=== PATIENT | female | born 1950 | race Caucasian/White ===

== ENCOUNTER 2020-01-20 08:25 | Emergency (ER) | payer MEDICARE ==
--- NOTE | 2020-01-20 08:49 | EDM.PDOC ---
ED HPI GENERAL MEDICAL PROBLEM - General Chief Complaint: Allergic Reaction Stated Complaint: SWOLLEN FACE,LIPS,MOUTH Time Seen by Provider: 01/20/20 08:38 Source of Information: Reports: Patient History Limitations: Reports: No Limitations - History of Present Illness INITIAL COMMENTS - FREE TEXT/NARRATIVE: Patient presents for evaluation of facial and lip swelling which she noticed on awakening this morning. She woke up approximately 0400 hrs. and could feel that her face and lip were puffy. This happened about 3 months ago and there have been additional episodes earlier than that although generally they were localized to just 1 side of the face. She has no history of allergies to anything. She is not on lisinopril or any other ROXY inhibitor's. She took 25 mg of Benadryl orally when she first awakened. She went back to sleep, waking up again around 0700 hours and the swelling was more pronounced and quite firm in the tissues of her mouth and face. Her tongue was not swollen. She had no difficulty swallowing. Her breathing is not limited in anyway. No rash or other skin changes. Onset: Today Duration: Hour(s): (4) Location: Reports: Head, Face Quality: Reports: Dull Severity: Moderate Improves with: Reports: Medication Worsens with: Reports: None Associated Symptoms: Reports: No Other Symptoms Treatments DATA LIBRARIAN: Reports: Other Medication(s) (Benadryl, total of 75 mg since 0400 hrs. 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 Bilateral edema in the lower half of the face.). Denies: Throat Swelling Respiratory: Reports: No Symptoms Cardiovascular: Reports: Palpitations Skin: Reports: No Symptoms ED EXAM GENERAL NO PERIP PULSE - Physical Exam Exam: See Below Text/Narrative:: This is an adult female with obvious significant swelling of the lips and face even from a distance. Her voice is normal per her report. Exam Limited By: No Limitations General Appearance: Alert, Mild Distress Eye Exam: Bilateral Eye: Normal Inspection Throat/Mouth: No Airway Compromise, Other (Both upper and lower lips are edematous, lower lip worse. There is some induration present in the tissue of the lips and the adjacent skin of the face on both sides. The tongue is of normal appearance as are the tonsils.). No: Dysphagia Head: Facial Swelling Neck: Non-Tender Respiratory/Chest: No Respiratory Distress, Lungs Clear Cardiovascular: Regular Rate, Rhythm, Tachycardia Course - Vital Signs Last Recorded V/S: Last Vital Signs Temp 35.1 C L 01/20/20 09:57 Pulse 85 01/20/20 09:57 Resp 18 01/20/20 11:21 BP 144/69 H 01/20/20 11:21 Pulse Ox 99 01/20/20 11:21 - Orders/Labs/Meds Orders: Active Orders 24 hr Category Date Time Status Sodium Chloride 0.9% [Saline Flush] Med 01/20/20 08:56 Ordered 10 ml FLUSH ASDIRECTED PRN Saline Lock Insert [OM.PC] Routine Oth 01/20/20 08:56 Ordered Medication Orders Sodium Chloride (Saline Flush) 10 ml FLUSH ASDIRECTED PRN PRN Reason: Keep Vein Open Last Admin: 01/20/20 09:29 Dose: 10 ml Documented by: Meds: Medications Generic Name Dose Route Start Last Admin Trade Name Freq PRN Reason Stop Dose Admin Sodium Chloride 10 ml 01/20/20 08:56 01/20/20 09:29 Saline Flush FLUSH 10 ml ASDIRECTED PRN Administration Keep Vein Open Discontinued Medications Generic Name Dose Route Start Last Admin Trade Name Freq PRN Reason Stop Dose Admin Diphenhydramine HCl 25 mg 01/20/20 08:56 01/20/20 09:15 Benadryl IVPUSH 01/20/20 08:57 25 mg ONETIME ONE Administration Epinephrine HCl 0.3 mg 01/20/20 08:57 01/20/20 09:13 Adrenalin IM 01/20/20 08:58 0.3 mg ONETIME ONE Administration Famotidine 20 mg 01/20/20 08:57 01/20/20 09:22 Pepcid IVPUSH 01/20/20 08:58 20 mg ONETIME ONE Administration Methylprednisolone Sodium Succinate 125 mg 01/20/20 08:57 01/20/20 09:19 Solu-Medrol IVPUSH 01/20/20 08:58 125 mg ONETIME ONE Administration - Re-Assessments/Exams Free Text/Narrative Re-Assessment/Exam: 01/20/20 09:08 There is no obvious cause for her angioedema that has ever been identified by the patient or others. She'll be given epinephrine 0.3 mg IM, Benadryl 25 mg IV, Pepcid 20 mg IV, Solu-Medrol 125 mg IV. I discussed that we need to observe her for at least 2 hours to make certain things are improving. Other than the facial swelling, she is in no respiratory distress at this time. 01/20/20 09:10 01/20/20 09:58 0957 hours, after receiving medication, the tightness feeling and swelling in the lips and adjacent face has been reduced although not eliminated. Still no breathing problems or swallowing problems. 01/20/20 11:47 1137 hours, patient feels substantially better at this time and swelling in his lips and face is been reduced by roughly 75%. She is able to breathe fine and has no trouble swallowing. I don't have an obvious cause for her symptoms. It could be something that is in the environment that she is allergic to although more typically this would be from something internal. She was sent with prescriptions for an EpiPen 0.3 mg twin pack, prednisone 20 mg, 10 tablets, both to be used as directed. If she uses the EpiPen, she must come to the emergency department. With another episode, with or without using the EpiPen, she should take 50 mg of Benadryl and 20 mg of Pepcid right away. She may require clinic testing to further look at his causes for this. We discussed that there is not a simple way to determine why this has started now but that treatment is relatively straightforward. Reasons to return to emergency department reviewed. Departure - Departure Time of Disposition: 11:39 Disposition: Home, Self-Care 01 Clinical Impression: Angioedema Qualifiers: Encounter type: initial encounter Qualified Code(s): T78.3XXA - Angioneurotic edema, initial encounter - Discharge Information Instructions: Angioedema, [id number] Referrals: PCP,None [Primary Care Provider] - Forms: ED Department Discharge Additional Instructions: Start prednisone today. Take Benadryl 25 mg 3 times a day regularly for the next 3 days. 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 Continue your loratadine every day for one month. If symptoms return as they did today, you could use the EpiPen as a temporary measure until you're able to get to the emergency department. It is for severe reactions. If you use the EpiPen must come to the emergency department. Also if you use the EpiPen take Benadryl and Pepcid before coming in to get its benefit also. Return to ER if feeling worse in anyway. Depending on how often this is occurring, additional clinic evaluation may be needed. Sepsis Event Note (ED) - Evaluation Sepsis Screening Result: No Definite Risk - Focused Exam Vital Signs: Vital Signs Temp Pulse Resp BP Pulse Ox 01/20/20 11:21 18 144/69 H 99 01/20/20 09:57 35.1 C L 85 20 143/65 H 99 01/20/20 08:30 36.5 C 106 H 18 156/71 H 99 - My Orders Last 24 Hours: My Active Orders 01/20/20 08:56 Sodium Chloride 0.9% [Saline Flush] 10 ml FLUSH ASDIRECTED PRN Saline Lock Insert [OM.PC] Routine - Assessment/Plan Last 24 Hours: My Active Orders 01/20/20 08:56 Sodium Chloride 0.9% [Saline Flush] 10 ml FLUSH ASDIRECTED PRN Saline Lock Insert [OM.PC] Routine
[2020-01-20] MEDS ORDERED: diphenhydrAMINE 50 MG/ML SDV IVPUSH ONE (08:56)
[2020-01-20] MEDS ORDERED: EPINEPHrine 1 MG/ML SDV IM ONE (08:57)
[2020-01-20] MEDS ORDERED: methylPREDNISolone Sodium Succinate 125 MG/2 ML SDV IVPUSH ONE (08:57)
[2020-01-20] MEDS ORDERED: Famotidine 20 MG/2 ML SDV IVPUSH ONE (08:57)
[2020-01-20] MEDS: Sodium Chloride 0.9% 10 ML Syringe FLUSH PRN ×3 (09:27→09:29)
[2020-01-20 09:59] VITALS: PULSE 85
[2020-01-20 11:23] VITALS: BP 144/69
== END 2020-01-20 12:00 | disposition home or self-care (01) ==
LOC: JP.ED 08:25
DX: T78.3XXA Angioneurotic edema, initial encounter (principal); R00.0 Tachycardia, unspecified; Z79.82 Long term (current) use of aspirin
CPT/HCPCS: 96372; 96374; 96375; 99283; J0171; J1200; J2930; J3490

== ENCOUNTER 2020-01-21 09:13 | Emergency (ER) | payer MEDICARE ==
[2020-01-21 09:36] VITALS: BP 162/84; PULSE 127
--- NOTE | 2020-01-21 09:57 | EDM.PDOC ---
ED HPI GENERAL MEDICAL PROBLEM - General Chief Complaint: Allergic Reaction Stated Complaint: HIVES,THROAT TIGHT,ALLERGIC REACTION Time Seen by Provider: 01/21/20 09:58 Source of Information: Reports: Patient History Limitations: Reports: No Limitations - History of Present Illness INITIAL COMMENTS - FREE TEXT/NARRATIVE: pt was seen yesterday with angioedema of the face. She was placed on pepcid, predisone and given epipen. This am she broke in a fine rash on the neck and she was scratchy in the throat. Her facial swelling is much better. Onset: Gradual Duration: Hour(s): Location: Reports: Face, Neck, Other (pt felt scratch in the throat but she did not have trouble breathing. Pt had a concern that the rash was a reaction to the predisone. ) - Related Data Allergies Allergy/AdvReac Type Severity Reaction Status Date / Time No Known Allergies Allergy Verified 01/20/20 08:36 Home Meds: Home Meds Amitriptyline [Elavil] 10 mg PO BEDTIME 10/08/15 [History] Aspirin [Adult Low Dose Aspirin EC] 81 mg PO DAILY 10/10/15 [History] EPINEPHrine [Epipen] 0.3 mg IM ASDIRECTED PRN 01/21/20 [History] Famotidine [Pepcid] 20 mg PO ASDIRECTED 01/21/20 [History] diphenhydrAMINE [Benadryl] 50 mg PO ASDIRECTED 01/21/20 [History] predniSONE 20 mg PO DAILY 01/21/20 [History] Past Medical History HEENT History: Reports: Allergic Rhinitis, Impaired Vision Cardiovascular History: Reports: None Respiratory History: Reports: None Gastrointestinal History: Reports: None Genitourinary History: Reports: None 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: Musculoskeletal History: Reports: None Neurological History: Reports: CVA, Other (See Below) Other Neuro History: Confusional migraine Psychiatric History: Reports: None Endocrine/Metabolic History: Reports: None Hematologic History: Reports: None Immunologic History: Reports: None Oncologic (Cancer) History: Reports: None Dermatologic History: Reports: None - Infectious Disease History Infectious Disease History: Reports: Chicken Pox, Measles, Mumps - Past Surgical History Female Surgical History: Reports: Hysterectomy, Salpingo-Oophorectomy, Other (See Below) Social & Family History - Tobacco Use Smoking Status *Q: Never Smoker - Caffeine Use Caffeine Use: Reports: Coffee - Recreational Drug Use Recreational Drug Use: No ED ROS ALLERGIC REACTION - Review of Systems Review Of Systems: See Below Constitutional: Reports: No Symptoms HEENT: Reports: Other ( pt has a scratch throat and a rash on her chest and neck. ) Respiratory: Reports: No Symptoms Cardiovascular: Reports: No Symptoms Endocrine: Reports: No Symptoms GI/Abdominal: Reports: No Symptoms : Reports: No Symptoms Musculoskeletal: Reports: No Symptoms Skin: Reports: Other ( red rash onthe neck and chest. ) Neurological: Reports: No Symptoms Psychiatric: Reports: Anxiety, Other (pt feels like the predisone is making her feel hyper) ED EXAM GENERAL NO PERIP PULSE - Physical Exam Exam: See Below Text/Narrative:: pt arrived with a scratchy feeling in her throat and a rash on her anterior neck and chest area. Exam Limited By: No Limitations General Appearance: Alert, Anxious Ears: Normal TMs Nose: Normal Inspection Throat/Mouth: Other (pt has no swelling in her throat area. ) Head: Atraumatic Neck: Normal Inspection Respiratory/Chest: No Respiratory Distress Cardiovascular: Regular Rate, Rhythm GI/Abdominal: Soft, Non-Tender (Female) Exam: Deferred Rectal (Female) Exam: Deferred Back Exam: Normal Inspection Extremities: Normal Inspection Neurological: Alert, Oriented Psychiatric: Anxious, Other (predisone is making her feel hyper) Skin Exam: Erythema, Rash Course - Vital Signs Last Recorded V/S: Last Vital Signs Temp 35.8 C L 01/21/20 09:44 Pulse 127 H 01/21/20 09:44 Resp 14 01/21/20 09:44 BP 162/84 H 01/21/20 09:44 Pulse Ox 98 01/21/20 09:44 Departure - Departure Time of Disposition: 09:55 Disposition: Home, Self-Care 01 Condition: Fair Clinical Impression: Angio-edema - Discharge Information Referrals: Choco Laboy NP [Primary Care Provider] - Forms: ED Department Discharge Care Plan Goals: continue to use claritin or benadryl, continue all meds the same , fill the epipen and reserve only for a marked emergency. Sepsis Event Note (ED) - Evaluation Sepsis Screening Result: No Definite Risk - Focused Exam Vital Signs: Vital Signs Temp Pulse Resp BP Pulse Ox 01/21/20 09:44 35.8 C L 127 H 14 162/84 H 98 01/21/20 09:34 35.8 C L 127 H 14 162/84 H 98
== END 2020-01-21 09:59 | disposition home or self-care (01) ==
LOC: JP.ED 09:13
DX: T78.3XXA Angioneurotic edema, initial encounter (principal); Z79.82 Long term (current) use of aspirin; Z79.899 Other long term (current) drug therapy; Z86.73 Personal history of transient ischemic attack (TIA), and cerebral infarction without residual deficits
CPT/HCPCS: 99283

== ENCOUNTER 2020-11-26 02:19 | Emergency (ER) | payer MEDICARE ==
[2020-11-26] MEDS ORDERED: methylPREDNISolone Sodium Succinate 125 MG/2 ML SDV IVPUSH ONE (02:48)
--- NOTE | 2020-11-26 02:55 | EDM.PDOC ---
ED HPI GENERAL MEDICAL PROBLEM - General Chief Complaint: General Stated Complaint: SWOLLEN TONGUE Time Seen by Provider: 11/26/20 02:40 Source of Information: Reports: Patient History Limitations: Reports: No Limitations - History of Present Illness INITIAL COMMENTS - FREE TEXT/NARRATIVE: 70-year-old female with chronic recurring angioedema episodes especially of facial tissue and tongue, presents after giving herself an EpiPen because of tongue edema that started at 10:30 PM. She is now improving significantly, is able to talk and has no airway compromise. She has a consult at [facility] in 3 weeks to discuss this chronic recurring medical issue. No shortness of breath, no fevers or chills. Onset: Sudden (Swelling started fairly suddenly about 4 hours ago) Location: Reports: Other (Mostly in the left tongue and left face) Associated Symptoms: Denies: Headaches, Malaise, Nausea/Vomiting, Shortness of Breath denies Pain Score (Numeric/FACES): 0 - Related Data Allergies Allergy/AdvReac Type Severity Reaction Status Date / Time No Known Allergies Allergy Verified 11/26/20 02:37 Home Meds: Home Meds Amitriptyline [Elavil] 10 mg PO BEDTIME 10/08/15 [History] EPINEPHrine [Epipen] 0.3 mg IM ASDIRECTED PRN 01/21/20 [History] diphenhydrAMINE [Benadryl] 50 mg PO ASDIRECTED 01/21/20 [History] Cetirizine [ZyrTEC] 30 mg PO BEDTIME 11/26/20 [History] Desloratadine 10 mg PO DAILY 11/26/20 [History] Past Medical History HEENT History: Reports: Allergic Rhinitis, Impaired Vision Cardiovascular History: Reports: None Respiratory History: Reports: None Gastrointestinal History: Reports: None Genitourinary History: Reports: None 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: Musculoskeletal History: Reports: None Neurological History: Reports: CVA, Other (See Below) Other Neuro History: Confusional migraine Psychiatric History: Reports: None Endocrine/Metabolic History: Reports: None Hematologic History: Reports: None Immunologic History: Reports: None Oncologic (Cancer) History: Reports: None Dermatologic History: Reports: None - Infectious Disease History Infectious Disease History: Reports: Chicken Pox, Measles, Mumps - Past Surgical History Female Surgical History: Reports: Hysterectomy, Salpingo-Oophorectomy, Other (See Below) Other Female Surgeries/Procedures: Bladder repair Social & Family History - Caffeine Use Caffeine Use: Reports: Coffee ED ROS GENERAL - Review of Systems Review Of Systems: See Below Constitutional: Denies: Fever, Chills HEENT: Reports: Other (Tongue and left facial edema) Respiratory: Denies: Shortness of Breath, Cough Cardiovascular: Denies: Chest Pain Neurological: Reports: No Symptoms, Change in Speech (Difficulty speaking due to swollen tongue). Denies: Headache ED EXAM, GENERAL - Physical Exam Exam: See Below Exam Limited By: No Limitations General Appearance: Alert, No Apparent Distress Eye Exam: Bilateral Eye: Normal Inspection Throat/Mouth: Other (Tylenol looks fairly symmetric, just a small amount of mucosal edema is left under the tongue on the left side) Head: Atraumatic Respiratory/Chest: No Respiratory Distress, Lungs Clear Neurological: Alert, Oriented Psychiatric: Normal Affect, Normal Mood Skin Exam: Warm, Dry Course - Vital Signs Last Recorded V/S: Last Vital Signs Temp 97.2 F 11/26/20 02:46 Pulse 103 H 11/26/20 02:46 Resp 16 11/26/20 02:46 BP 179/82 H 11/26/20 02:46 Pulse Ox 99 11/26/20 02:46 - Orders/Labs/Meds Meds: Medications Discontinued Medications Generic Name Dose Route Start Last Admin Trade Name Rena PRN Reason Stop Dose Admin Methylprednisolone Sodium Succinate 125 mg 11/26/20 02:48 11/26/20 03:01 Methylprednisolone Sodium Succinate 125 Mg/2 Ml Sdv IVPUSH 11/26/20 02:49 125 mg ONETIME ONE Administration - Re-Assessments/Exams Free Text/Narrative Re-Assessment/Exam: 11/26/20 02:47 An IV was started and the patient was given 125 mg of IV Solu-Medrol, but no further treatment was needed at this time. Continue her regular medications and recheck with [facility] as scheduled, return anytime if symptoms recur. Departure - Departure Time of Disposition: 03:21 Disposition: Home, Self-Care 01 Clinical Impression: Angioedema Qualifiers: Encounter type: initial encounter Qualified Code(s): T78.3XXA - Angioneurotic edema, initial encounter - Discharge Information Instructions: Angioedema, [id number] Referrals: Roiko,Choco, [employer] SPECIAL EDUCATION TEACHER [Primary Care Provider] - Forms: ED Department Discharge Care Plan Goals: Continue your regular medications, cool compresses or ice to any swollen areas may be beneficial and return if symptoms are persistent. Sepsis Event Note (ED) - Focused Exam Vital Signs: Vital Signs Temp Pulse Resp BP Pulse Ox 11/26/20 02:46 97.2 F 103 H 16 179/82 H 99
[2020-11-26 05:29] VITALS: BP 179/82; PULSE 103
== END 2020-11-26 03:20 | disposition home or self-care (01) ==
LOC: JP.ED 02:19
DX: T78.3XXA Angioneurotic edema, initial encounter (principal); Z86.73 Personal history of transient ischemic attack (TIA), and cerebral infarction without residual deficits; Z79.899 Other long term (current) drug therapy
CPT/HCPCS: 96374; 99283; J2930

== ENCOUNTER 2021-03-28 02:03 | Emergency (ER) | payer MEDICARE ==
[2021-03-28] MEDS ORDERED: Sodium Chloride 0.9% 10 ML Syringe FLUSH PRN (02:24)
[2021-03-28] MEDS ORDERED: diphenhydrAMINE 50 MG/ML SDV IVPUSH ONE (02:24)
[2021-03-28] MEDS ORDERED: Famotidine 20 MG/2 ML SDV IVPUSH ONE (02:24)
--- NOTE | 2021-03-28 02:37 | EDM.PDOC ---
ED HPI GENERAL MEDICAL PROBLEM - General Chief Complaint: ENT Problem Stated Complaint: ANGIO EDEMA, TONGUE SWELLING Time Seen by Provider: 03/28/21 02:16 Source of Information: Reports: Patient History Limitations: Reports: No Limitations - History of Present Illness INITIAL COMMENTS - FREE TEXT/NARRATIVE: Patient presents emergency room today with sudden onset of idiopathic angioedema episode. She states that episodes always occur in the middle of the night and wake her from sleep. She woke up around 00 30 secondary to right-sided tongue swelling and fullness. 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: epi - Related Data Allergies Allergy/AdvReac Type Severity Reaction Status Date / Time No Known Allergies Allergy Verified 03/28/21 02:11 Home Meds: Home Meds Amitriptyline [Elavil] 10 mg PO BEDTIME 10/08/15 [History] EPINEPHrine [Epipen] 0.3 mg IM ASDIRECTED PRN 01/21/20 [History] diphenhydrAMINE [Benadryl] 50 mg PO ASDIRECTED 01/21/20 [History] Cetirizine [ZyrTEC] 30 mg PO BEDTIME 11/26/20 [History] Desloratadine 10 mg PO DAILY 11/26/20 [History] Past Medical History HEENT History: Reports: Allergic Rhinitis, Impaired Vision Cardiovascular History: Reports: None Respiratory History: Reports: None Gastrointestinal History: Reports: None Genitourinary History: Reports: None 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: Musculoskeletal History: Reports: None Neurological History: Reports: CVA, Other (See Below) Other Neuro History: Confusional migraine Psychiatric History: Reports: None Endocrine/Metabolic History: Reports: None Hematologic History: Reports: None Immunologic History: Reports: None Oncologic (Cancer) History: Reports: None Dermatologic History: Reports: Angiodema - Infectious Disease History Infectious Disease History: Reports: Chicken Pox, Measles, Mumps - Past Surgical History Female Surgical History: Reports: Hysterectomy, Salpingo-Oophorectomy, Other (See Below) Other Female Surgeries/Procedures: Bladder repair Social & Family History - Tobacco Use Tobacco Use Status *Q: Never Tobacco User - Caffeine Use Caffeine Use: Reports: Coffee - Recreational Drug Use Recreational Drug Use: No ED ROS GENERAL - Review of Systems Review Of Systems: Comprehensive ROS is negative, except as noted in HPI. HEENT: Reports: Other (Tongue swelling right-sided primarily). Denies: Throat Swelling Respiratory: Denies: Shortness of Breath, Wheezing, Cough ED EXAM, GENERAL - Physical Exam Exam: See Below Exam Limited By: No Limitations General Appearance: Alert, WD/WN, No Apparent Distress Eye Exam: Bilateral Eye: EOMI, Normal Inspection, PERRL Ears: Normal External Exam, Hearing Grossly Normal Nose: Normal Inspection Throat/Mouth: Normal Lips, No Airway Compromise, Other (Is noted right side tongue fullness and swelling and it is causing some voice changes secondary to a thick tongue with talking) Head: Atraumatic, Normocephalic Neck: Normal Inspection, Supple, Non-Tender, Full Range of Motion Respiratory/Chest: No Respiratory Distress, Lungs Clear, Normal Breath Sounds, No Accessory Muscle Use. No: Wheezing, Stridor Cardiovascular: Normal Peripheral Pulses, Regular Rate, Rhythm, No Edema, No Murmur Peripheral Pulses: 2+: Radial (L), Radial (R) GI/Abdominal: Normal Bowel Sounds, Soft, Non-Tender, No Distention (Female) Exam: Deferred Rectal (Female) Exam: Deferred Back Exam: Normal Inspection, Full Range of Motion Extremities: Normal Inspection, Normal Range of Motion, No Pedal Edema, Normal Capillary Refill Neurological: Alert, Oriented, Normal Cognition, No Motor/Sensory Deficits Psychiatric: Normal Affect, Normal Mood Skin Exam: Warm, Dry, Intact, Normal Color Course - Vital Signs Text/Narrative:: 0236--discussion of previous episodes patient states that depending on her response as to whether she gets steroids in the emergency room. Secondary to tongue swelling she comes to the ER and does use her EpiPen in case there is worsening of condition. She states when she has facial episodes that she just use cool cloths at home. Patient does state that she has been to [facility] [place] and they are unable to figure out because of the angioedema this time she just manages it symptomatically when it occurs and on the type of episode. At this time we will give her Pepcid and Benadryl and additional 25 mg of Benadryl for a total of 50 these will be provided IV as well as a saline lock should she have any worsening symptoms we have access available. If no further changes or concerns noted after 1 hour observation will discharge home with PCM follow-up as needed there is any worsening symptoms then will provide Solu-Medrol 0303--patient recheck, she states that tongue swelling has gone down but still some on very back. she would like to wait a bit longer before going home as she is concerned about having to come back. will recheck at 0330 for d/c 0323--patient has called nurse and states that at this time she is ready for discharge Last Recorded V/S: Last Vital Signs Temp 96.9 F 03/28/21 02:15 Pulse 119 H 03/28/21 02:15 Resp 16 03/28/21 02:15 BP 151/79 H 03/28/21 02:15 Pulse Ox 96 03/28/21 02:15 - Orders/Labs/Meds Orders: Active Orders 24 hr Category Date Time Status Sodium Chloride 0.9% [Saline Flush] Med 03/28/21 02:24 Active 10 ml FLUSH ASDIRECTED PRN Saline Lock Insert [OM.PC] Routine Oth 03/28/21 02:24 Ordered Medication Orders Sodium Chloride (Sodium Chloride 0.9% 10 Ml Syringe) 10 ml FLUSH ASDIRECTED PRN PRN Reason: Keep Vein Open Last Admin: 03/28/21 02:34 Dose: 10 ml Documented by: SHUKRI Meds: Medications Generic Name Dose Route Start Last Admin Trade Name Freq PRN Reason Stop Dose Admin Sodium Chloride 10 ml 03/28/21 02:24 03/28/21 02:34 Sodium Chloride 0.9% 10 Ml Syringe FLUSH 10 ml ASDIRECTED PRN Administration Keep Vein Open Discontinued Medications Generic Name Dose Route Start Last Admin Trade Name Freq PRN Reason Stop Dose Admin Diphenhydramine HCl 25 mg 03/28/21 02:24 03/28/21 02:33 Diphenhydramine 50 Mg/Ml Sdv IVPUSH 03/28/21 02:25 25 mg ONETIME ONE Administration Famotidine 20 mg 03/28/21 02:24 03/28/21 02:33 Famotidine 20 Mg/2 Ml Sdv IVPUSH 03/28/21 02:25 20 mg ONETIME ONE Administration Departure - Departure Time of Disposition: 03:23 Disposition: Home, Self-Care 01 Clinical Impression: Idiopathic angioedema, Mild tongue swelling - Discharge Information *PRESCRIPTION DRUG MONITORING PROGRAM REVIEWED*: Not Applicable *COPY OF PRESCRIPTION DRUG MONITORING REPORT IN PATIENT [place]: Not Applicable Instructions: Angioedema, [id number] Referrals: Choco Laboy NP [Primary Care Provider] - Forms: ED Department Discharge Additional Instructions: Discussed with patient recommendations in home medication dosing to include: 1. Benadryl 50 mg at time of initial event and every 6 hours may use 25 to 50 mg as needed & 2. Pepcid 20 to 40 mg at time of initial event and then 20 mg twice a day again as needed along with Benadryl. Use EpiPen as previously directed Come to the ER for any further concerns with her angioedema episodes that might include airway compromise Sepsis Event Note (ED) - Evaluation Sepsis Screening Result: No Definite Risk - Focused Exam Vital Signs: Vital Signs Temp Pulse Resp BP Pulse Ox 03/28/21 02:15 96.9 F 119 H 16 151/79 H 96 - My Orders Last 24 Hours: My Active Orders 03/28/21 02:24 Sodium Chloride 0.9% [Saline Flush] 10 ml FLUSH ASDIRECTED PRN Saline Lock Insert [OM.PC] Routine - Assessment/Plan Last 24 Hours: My Active Orders 03/28/21 02:24 Sodium Chloride 0.9% [Saline Flush] 10 ml FLUSH ASDIRECTED PRN Saline Lock Insert [OM.PC] Routine
[2021-03-28 03:28] VITALS: BP 152/74; PULSE 93
== END 2021-03-28 03:30 | disposition home or self-care (01) ==
LOC: JP.ED 02:03
DX: T78.3XXA Angioneurotic edema, initial encounter (principal); Z87.891 Personal history of nicotine dependence; Z86.73 Personal history of transient ischemic attack (TIA), and cerebral infarction without residual deficits
CPT/HCPCS: 96374; 96375; 99284; J1200; J3490